=== PATIENT | female | born 1990 | race Hispanic/Latino ===

== ENCOUNTER 2018-11-16 17:59 | Emergency (ER) | payer OTHER ==
[2018-11-16 19:03] LABS: #Eosinphils 0.1 thou/uL (0.0-0.7); #Lymphocytes 2.5 thou/uL (1.20-3.40); #Monocytes 0.8 thou/uL (0.11-0.59); #Neutrophils 7.4 thou/uL (1.40-6.50); %Basophils 0.3 % (0.0-1.0); %Lymphocytes 22.9 % (21.0-51.0); %Monocytes 7.5 % (0.0-10.0); %Neutrophils 68.3 % (42.0-75.0); Hemoglobin 13.6 g/dL (12.0-16.0); Mean Corpuscular HGB CONC 33.6 g/dL (32.0-36.0); Mean Corpuscular Volume 92.3 fL (78.0-98.0); Mean Platelet Volume 9.7 fL (7.4-10.4); Platelet Count 137 thou/uL (130-400); RBC Distribution Width 10.9 % (11.5-14.5); White Blood Cell (WBC) Count 10.8 thou/uL (4.8-10.8)
[2018-11-16 23:46] LABS: Bilirubin Negative (Negative); Blood, Urine Moderate (Negative); Clarity TURBID (Clear); Glucose, Urine (Dipstick) Negative (Negative); Leukocyte Negative (Negative); Nitrite Negative (Negative); Protein, Urine (Dipstick) Negative (Neg-Trace); Specific Gravity, Urine 1.015 (1.002-1.036); Urobilinogen 0.2 mg/dL (0.2-1.0)
[2018-11-16 23:49] LABS: Bacteria/HPF None Seen HPF (None Seen); Hyaline Casts/LPF 0-3 HYALINE CAST LPF (0-3 Hyaline); Squamous Epithelial 0-3 HPF (0-3); WBC/HPF 0-3 HPF (0-3)
--- NOTE | 2018-11-17 00:03 | ULT ---
TRANSVAGINAL PELVIC ULTRASOUND WITH LOWE SCALE, COLOR FLOW AND SPECTRAL DOPPLER IMAGIN11/16/18 HISTORY: 28-year-old female with vaginal bleeding and pelvic pain. She was diagnosed with 6 weeks in [place]. FINDINGS: The uterus measures 8.1 x 4.9 cm. The right ovary measures 3.7 x 3 x 2.5 cm. The left ovary measures 3.1 x 1.8 x 1.8 cm. There is a 1.7 cm right ovarian cyst. Flow is demonstrated to both ovaries. The endometrium measures 1.4 cm and has a heterogeneous appearance. No endometrial fluid is seen. No intrauterine gestational sac is identified. A small amount of free fluid is seen in the cul-de-sac. E chogenic material in the endometrial cavity may represent retained products of conception. IMPRESSION: Findings are suggestive of retained products of conception without evidence of viable intrauterine ge station. Correlation with serial serum beta HCG and followup ultrasound is recommended. POS: [facility]
== END 2018-11-17 00:23 | disposition home or self-care (01) ==
LOC: ERS 17:59
DX: O03.4 Incomplete spontaneous abortion without complication (principal)
CPT/HCPCS: 36415; 76856; 81003; 81015; 84702; 85025; 86900; 86901